=== PATIENT | female | born 1945 | race Caucasian/White ===

== ENCOUNTER 2021-01-24 11:31 | Emergency (ER) | payer MEDICARE, OTHER ==
--- NOTE | 2021-01-24 12:11 | EDM.PDOC ---
ED HPI GENERAL MEDICAL PROBLEM - General Chief Complaint: General Stated Complaint: LOTS OF HIP PAIN SHOULD PAIN BACK/ARTHRITIS Time Seen by Provider: 01/24/21 12:10 Source of Information: Reports: Patient, Old Records, RN, RN Notes Reviewed History Limitations: Reports: No Limitations - History of Present Illness INITIAL COMMENTS - FREE TEXT/NARRATIVE: Pt presents to ER by POV with c/o a flare up of arthritis causing severe pain in the hips, back, and sometimes in the shoulders. Pt states that in the past when this has happened Dr. Forrester has treated her with Hydrocodone and physical therapy. The pain began to flare up with the weather change 2 weeks ago. Last week she went to see Dr. Forrester and was prescribed pain medication, but it made her nauseated. She tried to go back to clinic today, but claims no appointments were available. Pt denies fall or injury. Denies radiating pain, loss of bowel or bladder function, numbness, tingling, or motor weakness. Duration: Constant Location: Reports: Back, Upper Extremity, Left, Upper Extremity, Right, Lower Extremity, Left, Lower Extremity, Right Quality: Reports: Ache, Same as Previous Episode Severity: Severe Improves with: Reports: Rest Worsens with: Reports: Movement Associated Symptoms: Reports: No Other Symptoms Treatments DIET AIDE: Reports: Other Medication(s) Bilateral Hip Pain Score (Numeric/FACES): 10 - Related Data Allergies Allergy/AdvReac Type Severity Reaction Status Date / Time No Known Allergies Allergy Verified 01/24/21 11:54 Home Meds: Home Meds Aspirin [Ecotrin] 81 mg PO DAILY 11/11/13 [History] Calcium Carb/Vit D3/Minerals [Calcium 1,200 mg Tablet Chew] 1 each PO DAILY 11/11/13 [History] Multivitamin with Minerals [Multiple Vitamin] 1 tab PO DAILY 11/11/13 [History] lisinopriL [Prinivil] 10 mg PO DAILY 11/11/13 [History] Hydrocodone/Acetaminophen [Hydrocodone-Acetamin 7.5-325] 1 tab PO Q6HR PRN 01/24/21 [History] Omeprazole 20 mg PO DAILY 01/24/21 [History] Past Medical History Cardiovascular History: Reports: Hypertension Gastrointestinal History: Reports: GERD Musculoskeletal History: Reports: Arthritis, Back Pain, Chronic, Fracture (multiple fractures from remote trauma) Social & Family History - Family History Family Medical History: No Pertinent Family History - Living Situation & Occupation Living situation: Reports: with Family Occupation: Retired ED ROS GENERAL - Review of Systems Review Of Systems: Comprehensive ROS is negative, except as noted in HPI. ED EXAM, GENERAL - Physical Exam Exam: See Below Exam Limited By: No Limitations General Appearance: Alert, No Apparent Distress, Thin, Cachetic Eye Exam: Bilateral Eye: Normal Inspection Throat/Mouth: Normal Voice, No Airway Compromise Head: Atraumatic, Normocephalic Neck: Normal Inspection, Non-Tender, Full Range of Motion Respiratory/Chest: No Respiratory Distress, Lungs Clear, No Accessory Muscle Use, Chest Non-Tender Cardiovascular: Normal Peripheral Pulses, Regular Rate, Rhythm, No Edema GI/Abdominal: Normal Bowel Sounds, Soft, Non-Tender Back Exam: Decreased Range of Motion, Paraspinal Tenderness (lumbar), Vertebral Tenderness (Generalized) Extremities: Non-Tender, Normal Capillary Refill, Other (Pain to B/L hips and low back with any ROM). No: Joint Swelling, Increased Warmth, Mottled, Pallor, Redness Neurological: Alert, Oriented, No Motor/Sensory Deficits Psychiatric: Normal Mood Skin Exam: Warm, Dry, Intact, Normal Color, No Rash Course - Vital Signs Last Recorded V/S: Last Vital Signs Temp 99.6 F 01/24/21 12:10 Pulse 95 01/24/21 12:10 Resp 18 01/24/21 12:10 BP 120/82 01/24/21 12:10 Pulse Ox 100 01/24/21 12:10 - Orders/Labs/Meds Meds: Medications Discontinued Medications Generic Name Dose Route Start Last Admin Trade Name Mraina PRN Reason Stop Dose Admin Hydromorphone HCl 0.5 mg 01/24/21 12:21 01/24/21 12:34 Hydromorphone 0.5 Mg/0.5 Ml Syringe IM 01/24/21 12:22 0.5 mg ONETIME ONE Administration Lidocaine HCl 30 gm 01/24/21 12:21 01/24/21 12:34 Lidocaine 5% Oint 35.44 Gm Tube TOP 01/24/21 12:22 1 applic ONETIME ONE Administration Ondansetron HCl 4 mg 01/24/21 12:21 01/24/21 12:34 Ondansetron 4 Mg Tab.Dis PO 01/24/21 12:22 4 mg ONETIME ONE Administration Departure - Departure Time of Disposition: 12:44 Disposition: Home, Self-Care 01 Condition: Fair Clinical Impression: Arthritis pain - Discharge Information *PRESCRIPTION DRUG MONITORING PROGRAM REVIEWED*: No *COPY OF PRESCRIPTION DRUG MONITORING REPORT IN PATIENT YISEL: No Instructions: Arthritis Forms: ED Department Discharge Additional Instructions: Rx: Zofran 4mg Rx: Lidocaine Ointment 5% Take Zofran (nausea mediation) 30 to 60 minutes prior to taking your pain medication. Call Dr. Forrester for a physical therapy referral. Sepsis Event Note (ED) - Focused Exam Vital Signs: Vital Signs Temp Pulse Resp BP Pulse Ox 01/24/21 12:10 99.6 F 95 18 120/82 100
[2021-01-24] MEDS ORDERED: Ondansetron 4 MG Tab.DIS PO ONE (12:21)
[2021-01-24] MEDS ORDERED: HYDROmorphone 0.5 MG/0.5 ML Syringe IM ONE (12:21)
[2021-01-24] MEDS ORDERED: Lidocaine 5% Oint 35.44 GM Tube TOP ONE (12:21)
== END 2021-01-24 13:05 | disposition home or self-care (01) ==
LOC: DL.ED 11:31
DX: M16.0 Bilateral primary osteoarthritis of hip (principal); M19.90 Unspecified osteoarthritis, unspecified site; K21.9 Gastro-esophageal reflux disease without esophagitis; I10 Essential (primary) hypertension; Z79.899 Other long term (current) drug therapy; Z79.82 Long term (current) use of aspirin
CPT/HCPCS: 96372; 99283; A9270-GY; J1170

== ENCOUNTER → 2022-10-04 | Day surgery (SDC) | payer MEDICARE, OTHER ==
[~2022-10-04] MED LIST: Acetaminophen 325 MG Tab PO PRN; Acetaminophen/Codeine 300-30 MG Tab PO PRN; Apraclonidine 0.5% Ophth Soln 5 ML Bot EYELF ONE; Balanced Salt Solution Ophth Irrig 500 ML Bottle IOCULAR ONE; Cataract Ophth Solution EYELF ONE; Chondroitin Sulfate/Hyaluronate Sodium Ophth Inj 0.75 ML Syringe EYELF ONE; Dexamethasone 4 MG/ML SDV IV ONE; Dexamethasone/Neomycin/Polymyxin B Ophth Oint 3.5 GM Tube EYELF ONE; Diclofenac Sodium 0.1% Ophth Soln 5 ML Bottle EYELF ONE; Lidocaine 1% 30 ML SDV ONE; Midazolam 1 MG/ML 2 ML SDV IV ONE; Moxifloxacin 0.5% Ophth Soln 3 ML Bottle EYELF ONE; Ondansetron 4 MG/2 ML SDV IVPUSH PRN; Phenylephrine 10% Ophth Soln 5 ML Bot EYELF PRN; Povidone-Iodine 5% Sterile Ophth Soln 30 ML Bottle EYELF ONE; Proparacaine 0.5% Ophth Soln 15 ML Bottle EYELF ONE; Sodium Chloride 0.9% 10 ML Syringe FLUSH PRN; Sodium Chloride 0.9% 10 ML Syringe IV ONE; Timolol Maleate 0.5% Ophth Soln 5 ML Bottle EYELF ONE; Tropicamide 1% Ophth Soln 15 ML Bottle EYELF ONE; Vancomycin 500 MG SDV EYELF ONE
== END | disposition home or self-care (01) ==
LOC: DL.SDS 07:27
PROVIDERS: ATTEND Ophthalmology
DX: H25.812 Combined forms of age-related cataract, left eye (principal); I10 Essential (primary) hypertension; M81.0 Age-related osteoporosis without current pathological fracture; I25.10 Atherosclerotic heart disease of native coronary artery without angina pectoris; M19.90 Unspecified osteoarthritis, unspecified site; F17.210 Nicotine dependence, cigarettes, uncomplicated; J44.9 Chronic obstructive pulmonary disease, unspecified; I65.23 Occlusion and stenosis of bilateral carotid arteries; Z98.890 Other specified postprocedural states; Z79.899 Other long term (current) drug therapy; Z79.82 Long term (current) use of aspirin; Z90.49 Acquired absence of other specified parts of digestive tract
CPT/HCPCS: 00142; A9270-GY; J1100; J2250; J3370; J3490

== ENCOUNTER → 2022-10-18 | Day surgery (SDC) | payer MEDICARE, OTHER ==
[~2022-10-18] MED LIST changes: -Apraclonidine 0.5% Ophth Soln 5 ML Bot EYELF ONE; +Apraclonidine 0.5% Ophth Soln 5 ML Bot EYERT ONE; -Cataract Ophth Solution EYELF ONE; +Cataract Ophth Solution EYERT ONE; -Chondroitin Sulfate/Hyaluronate Sodium Ophth Inj 0.75 ML Syringe EYELF ONE; +Chondroitin Sulfate/Hyaluronate Sodium Ophth Inj 0.75 ML Syringe EYERT ONE; -Dexamethasone 4 MG/ML SDV IV ONE; -Dexamethasone/Neomycin/Polymyxin B Ophth Oint 3.5 GM Tube EYELF ONE; +Dexamethasone/Neomycin/Polymyxin B Ophth Oint 3.5 GM Tube EYERT ONE; -Diclofenac Sodium 0.1% Ophth Soln 5 ML Bottle EYELF ONE; +Diclofenac Sodium 0.1% Ophth Soln 5 ML Bottle EYERT ONE; -Midazolam 1 MG/ML 2 ML SDV IV ONE; -Moxifloxacin 0.5% Ophth Soln 3 ML Bottle EYELF ONE; +Moxifloxacin 0.5% Ophth Soln 3 ML Bottle EYERT ONE; -Phenylephrine 10% Ophth Soln 5 ML Bot EYELF PRN; +Phenylephrine 10% Ophth Soln 5 ML Bot EYERT PRN; -Povidone-Iodine 5% Sterile Ophth Soln 30 ML Bottle EYELF ONE; +Povidone-Iodine 5% Sterile Ophth Soln 30 ML Bottle EYERT ONE; -Proparacaine 0.5% Ophth Soln 15 ML Bottle EYELF ONE; +Proparacaine 0.5% Ophth Soln 15 ML Bottle EYERT ONE; -Sodium Chloride 0.9% 10 ML Syringe IV ONE; -Timolol Maleate 0.5% Ophth Soln 5 ML Bottle EYELF ONE; +Timolol Maleate 0.5% Ophth Soln 5 ML Bottle EYERT ONE; -Tropicamide 1% Ophth Soln 15 ML Bottle EYELF ONE; +Tropicamide 1% Ophth Soln 15 ML Bottle EYERT ONE; -Vancomycin 500 MG SDV EYELF ONE; +Vancomycin 500 MG SDV EYERT ONE
== END ==
LOC: DL.SDS 06:57
PROVIDERS: ATTEND Ophthalmology
DX: H26.9 Unspecified cataract (principal); Z53.09 Procedure and treatment not carried out because of other contraindication
CPT/HCPCS: A9270; J3370; J3490

== ENCOUNTER → 2022-11-01 | Day surgery (SDC) | payer MEDICARE, OTHER ==
[~2022-11-01] MED LIST changes: +Dexamethasone 4 MG/ML SDV IV ONE; +Midazolam 1 MG/ML 2 ML SDV IV ONE; +Sodium Chloride 0.9% 10 ML Syringe IV ONE
== END | disposition home or self-care (01) ==
LOC: DL.SDS 06:56
PROVIDERS: ATTEND Ophthalmology
DX: H25.811 Combined forms of age-related cataract, right eye (principal); I10 Essential (primary) hypertension; M81.0 Age-related osteoporosis without current pathological fracture; I65.23 Occlusion and stenosis of bilateral carotid arteries; Z98.890 Other specified postprocedural states; Z79.899 Other long term (current) drug therapy; Z79.82 Long term (current) use of aspirin; I25.10 Atherosclerotic heart disease of native coronary artery without angina pectoris; F17.210 Nicotine dependence, cigarettes, uncomplicated
CPT/HCPCS: 00142; A9270-GY; J1100; J2250; J3370; J3490

== ENCOUNTER 2023-09-09 14:34 | Emergency (ER) | payer MEDICARE, OTHER ==
[2023-09-09 15:25] LABS: APPEARANCE,URINE CLEAR (CLEAR); BILIRUBIN,URINE SMALL (NEGATIVE); COLOR,URINE DARK YELLOW (YELLOW); GLUCOSE,URINE NEGATIVE (NEGATIVE); KETONES,URINE 15 (NEGATIVE); LEUKOCYTE ESTERASE,URINE NEGATIVE (NEGATIVE); NITRITE,URINE NEGATIVE (NEGATIVE); OCCULT BLOOD,URINE MODERATE (NEGATIVE); PROTEIN,URINE 100 (NEGATIVE); UROBILINOGEN,URINE 0.2 mg/dL (0.2-1.0)
[2023-09-09 15:41] LABS: BASOPHILS PERCENT AUTO 0.9 % (0.0-1.0); EOSINOPHILS PERCENT AUTO 1.4 % (1.0-3.0); HEMATOCRIT 40.2 % (37.0-47.0); HEMOGLOBIN 12.6 g/dL (12.0-16.0); LYMPHOCYTES PERCENT AUTO 26.8 % (20.5-50.1); MEAN CORPUSCULAR HEMOGLOBIN 30.5 pg (27.0-34.0); MEAN CORPUSCULAR HGB CONC 31.3 g/dL (33.0-35.0); MEAN CORPUSCULAR VOLUME 97.3 fL (80-100); MONOCYTES PERCENT AUTO 12.3 % (2-8); NEUTROPHILS PERCENT AUTO 58.6 % (42.2-75.2); PLATELET COUNT,PLT 314 10^3/uL (150-450); RED BLOOD CELL COUNT 4.13 10^6/uL (4.2-5.4); WHITE BLOOD CELL COUNT,WBC 6.5 10^3/uL (5.0-10.0)
[2023-09-09] MEDS ORDERED: Sodium Chloride 0.9% 10 ML Syringe FLUSH PRN (15:44)
[2023-09-09 15:58] LABS: A/G RATIO 1.2; ALBUMIN 3.6 g/dL (3.4-5.0); ANION GAP 4.1 mEq/L (7-13); BILIRUBIN TOTAL 0.4 mg/dL (0.2-1.0); BUN/CREATININE RATIO 13.7 (No establ ref range); CALCIUM 9.1 mg/dL (8.5-10.1); CREATININE 1.17 mg/dL (0.55-1.02); EST CRCL DRUG DOSING (CG) 18.09 mL/min; POTASSIUM,K 5.1 mmol/L (3.5-5.1); PROTEIN TOTAL,TP 6.5 g/dL (6.4-8.2)
[2023-09-09 16:00] LABS: PROTHROMBIN TIME 10.2 SEC (9.0-12.0)
[2023-09-09 16:06] LABS: AMORPHOUS SEDIMENT,URINE FEW /HPF (NOT SEEN); BACTERIA,URINE FEW /HPF (0-FEW/HPF); EPITHELIAL CELLS,URINE MODERATE /HPF (NOT SEEN); HYALINE CASTS,URINE MODERATE; MUCUS,URINE MANY /LPF (NOT SEEN); RBC,URINE 0-5 /HPF (0-5); WBC,URINE 0-5 /HPF (0-5/HPF)
[2023-09-09] MEDS ORDERED: Iopamidol 612 MG/ML 100 ML Bottle IVPUSH ONE (16:11)
[2023-09-09] MEDS ORDERED: Sodium Chloride 0.9% 1,000 ML IV ONE (17:33)
[2023-09-09] MEDS ORDERED: Pantoprazole 40 MG Vial IVPUSH ONE (18:26)
== END 2023-09-10 07:17 ==
LOC: DL.ED 14:34
DX: K92.2 Gastrointestinal hemorrhage, unspecified (principal); I10 Essential (primary) hypertension; K21.9 Gastro-esophageal reflux disease without esophagitis; M19.90 Unspecified osteoarthritis, unspecified site; F17.210 Nicotine dependence, cigarettes, uncomplicated; Z79.82 Long term (current) use of aspirin; Z79.899 Other long term (current) drug therapy; Z86.16 Personal history of COVID-19; Z90.49 Acquired absence of other specified parts of digestive tract
CPT/HCPCS: 36415; 74177; 80053; 81001; 82272; 83605; 85018; 85025; 85610; 85730; 86850; 86900; 86901; 96361; 96374; 99284; C9113; J7030; Q9967; J3490

== ENCOUNTER 2024-02-06 10:57 | Inpatient (IN) | payer MEDICARE, OTHER ==
[2024-02-06] MEDS: Sodium Chloride 0.9% 1,000 ML IV ONE (11:10)
[2024-02-06 11:14] LABS: BASOPHILS PERCENT AUTO 0.1 % (0.0-1.0); HEMATOCRIT 46.9 % (37.0-47.0); HEMOGLOBIN 14.4 g/dL (12.0-16.0); LYMPHOCYTES PERCENT AUTO 2.3 % (20.5-50.1); MEAN CORPUSCULAR HEMOGLOBIN 29.9 pg (27.0-34.0); MEAN CORPUSCULAR HGB CONC 30.7 g/dL (33.0-35.0); MEAN CORPUSCULAR VOLUME 97.5 fL (80-100); MONOCYTES PERCENT AUTO 7.4 % (2-8); NEUTROPHILS PERCENT AUTO 90.2 % (42.2-75.2); PLATELET COUNT,PLT 260 10^3/uL (150-450); RED BLOOD CELL COUNT 4.81 10^6/uL (4.2-5.4); WHITE BLOOD CELL COUNT,WBC 16.6 10^3/uL (5.0-10.0)
[2024-02-06 11:16] LABS: BASE EXCESS ARTERIAL 2 mmol/L ((-2)-(+3)); BICARBONATE,ARTERIAL 32.6 mmol/L (22-26); O2 DELIVERY DEVICE NASAL CANNULA; O2 SATURATION ARTERIAL 98 % (95-100); PH,ARTERIAL 7.22 (7.35-7.45); PO2 ARTERIAL 121 mmHg (70-100)
[2024-02-06 11:23] LABS: ALLEN TEST PERFORMED; PCO2 ARTERIAL 83 mmHg (35-45)
[2024-02-06 11:30] LABS: APPEARANCE,URINE CLEAR (CLEAR); BILIRUBIN,URINE NEGATIVE (NEGATIVE); COLOR,URINE YELLOW (YELLOW); GLUCOSE,URINE NEGATIVE (NEGATIVE); KETONES,URINE NEGATIVE (NEGATIVE); LEUKOCYTE ESTERASE,URINE NEGATIVE (NEGATIVE); NITRITE,URINE NEGATIVE (NEGATIVE); OCCULT BLOOD,URINE TRACE-INTACT (NEGATIVE); PH,URINE 5.5 (5.0-9.0); PROTEIN,URINE 100 (NEGATIVE)
[2024-02-06] MEDS: Sodium Chloride 0.9% 10 ML Syringe FLUSH PRN (11:31)
[2024-02-06] MEDS: Hydrocortisone Sodium Succinate 100 MG/2 ML SDV IVPUSH ONE (11:32)
[2024-02-06 11:40] LABS: LACTIC ACID 1.9 mmol/L (0.4-2.0)
[2024-02-06 11:47] LABS: ALBUMIN 3.2 g/dL (3.4-5.0); ALKALINE PHOSPHATASE 77 U/L (46-116); ANION GAP 11.1 mEq/L (7-13); BILIRUBIN TOTAL 0.9 mg/dL (0.2-1.0); BLOOD UREA NITROGEN,BUN 58 mg/dL (7-18); BUN/CREATININE RATIO 35.2 (No establ ref range); C-REACTIVE PROTEIN 8.97 ng/dL (<=0.50); CALCIUM 8.5 mg/dL (8.5-10.1); CARBON DIOXIDE,CO2 34 mmol/L (21-32); CHLORIDE,CL 99 mmol/L (98-107); CREATININE 1.65 mg/dL (0.55-1.02); GLUCOSE RANDOM 137 mg/dL (70-99); MAGNESIUM 2.4 mg/dL (1.8-2.4); POTASSIUM,K 5.1 mmol/L (3.5-5.1); PROTEIN TOTAL,TP 6.4 g/dL (6.4-8.2); TSH ULTRASENSITIVE 0.68 uIU/mL (0.36-3.74)
[2024-02-06 11:51] LABS: ESTIMATED GFR 32 mL/min (>=60)
[2024-02-06 11:52] LABS: SODIUM,NA 139 mmol/L (136-145)
[2024-02-06 11:54] LABS: BACTERIA,URINE FEW /HPF (0-FEW/HPF); EPITHELIAL CELLS,URINE FEW /HPF (NOT SEEN); RBC,URINE 0-5 /HPF (0-5)
[2024-02-06 11:55] LABS: HYALINE CASTS,URINE RARE; MUCUS,URINE FEW /LPF (NOT SEEN)
[2024-02-06] MEDS: Piperacillin/Tazobactam 3.375 GM in Sodium Chloride 0.9% 100 ML IV ONE (12:09)
[2024-02-06 12:41] LABS: ALANINE AMINOTRANSFERASE,ALT > 1000 U/L (14-59); ASPARTATE AMNIOTRANSFERASE,AST > 1000 U/L (15-37)
[2024-02-06] MEDS ORDERED: Acetaminophen/HYDROcodone 325-5 MG Tab PO PRN (13:12)
[2024-02-06] MEDS ORDERED: Ondansetron 4 MG Tab.DIS PO PRN (13:12)
[2024-02-06] MEDS ORDERED: Docusate Sodium 100 MG Cap PO PRN (13:12)
[2024-02-06] MEDS ORDERED: Acetaminophen 325 MG Tab PO PRN (13:12)
[2024-02-06 13:14] LABS: AMYLASE 148 U/L (25-115); LIPASE 122 U/L (16-77)
[2024-02-06 13:19] LABS: ACETAMINOPHEN 0 ug/mL (10-30 (Therapeutic))
[2024-02-06] MEDS: Pantoprazole 40 MG Vial IVPUSH SCH (15:03)
[2024-02-06] MEDS: methylPREDNISolone Sodium Succinate 40 MG/1 ML SDV IVPUSH SCH (15:03)
[2024-02-06] MEDS: Sodium Chloride 0.9% 1,000 ML IV SCH (15:05)
[2024-02-06] MEDS: Piperacillin/Tazobactam 2.25 GM in Sodium Chloride 0.9% 100 ML IV SCH (15:08)
[2024-02-06] MEDS ORDERED: Temazepam 15 MG Cap PO PRN (22:25)
[2024-02-07] MEDS: Piperacillin/Tazobactam 4.5 GM in Sodium Chloride 0.9% 100 ML IV SCH (03:41)
[2024-02-07 06:37] LABS: BASOPHILS PERCENT AUTO 0.1 % (0.0-1.0); EOSINOPHILS PERCENT AUTO 0.1 % (1.0-3.0); HEMATOCRIT 45.1 % (37.0-47.0); HEMOGLOBIN 13.6 g/dL (12.0-16.0); LYMPHOCYTES PERCENT AUTO 3.1 % (20.5-50.1); MEAN CORPUSCULAR HEMOGLOBIN 30.2 pg (27.0-34.0); MEAN CORPUSCULAR HGB CONC 30.2 g/dL (33.0-35.0); MONOCYTES PERCENT AUTO 3.9 % (2-8); NEUTROPHILS PERCENT AUTO 92.8 % (42.2-75.2); PLATELET COUNT,PLT 251 10^3/uL (150-450); RED BLOOD CELL COUNT 4.51 10^6/uL (4.2-5.4); WHITE BLOOD CELL COUNT,WBC 13.8 10^3/uL (5.0-10.0)
[2024-02-07 06:45] LABS: ANION GAP 12.9 mEq/L (7-13); CALCIUM 7.3 mg/dL (8.5-10.1); CREATININE 1.87 mg/dL (0.55-1.02); EST CRCL DRUG DOSING (CG) 11.11 mL/min; POTASSIUM,K 4.9 mmol/L (3.5-5.1)
[2024-02-07 06:58] LABS: ALBUMIN 2.9 g/dL (3.4-5.0); ALKALINE PHOSPHATASE 64 U/L (46-116); AMYLASE 146 U/L (25-115); BILIRUBIN DIRECT 0.4 mg/dL (0.0-0.2); BILIRUBIN INDIRECT 0.2; BILIRUBIN TOTAL 0.6 mg/dL (0.2-1.0); LIPASE 69 U/L (16-77); PROTEIN TOTAL,TP 6.2 g/dL (6.4-8.2)
[2024-02-07 07:03] LABS: A/G RATIO 0.88; ALANINE AMINOTRANSFERASE,ALT > 1000 U/L (14-59); ASPARTATE AMNIOTRANSFERASE,AST > 1000 U/L (15-37)
[2024-02-07] MEDS: Nicotine 21 MG/24 Hr Patch TRDERM SCH (09:28)
[2024-02-07] MEDS: Furosemide 40 MG/4 ML VIAL IVPUSH ONE (12:55)
[2024-02-07] MEDS: Enoxaparin 30 MG/0.3 ML Syringe SUBCUT SCH (12:55)
[2024-02-07] MEDS: Clopidogrel 75 MG Tab PO SCH (12:56)
[2024-02-08] MEDS ORDERED: Rosuvastatin 10 MG Tab PO SCH (09:00)
== END 2024-02-07 16:00 | disposition still patient (30) | DRG 193 ==
LOC: DL.ED 10:57 → DL.MS 12:36
PROVIDERS: ADMIT Internal Medicine; ATTEND Internal Medicine
DX: A41.9 Sepsis, unspecified organism (principal); J18.9 Pneumonia, unspecified organism; I21.9 Acute myocardial infarction, unspecified; E87.29 Other acidosis; I50.9 Heart failure, unspecified; Z79.82 Long term (current) use of aspirin; Z79.899 Other long term (current) drug therapy; Z66 Do not resuscitate; I11.0 Hypertensive heart disease with heart failure; K21.9 Gastro-esophageal reflux disease without esophagitis; G89.29 Other chronic pain; M54.9 Dorsalgia, unspecified; M19.90 Unspecified osteoarthritis, unspecified site; D86.0 Sarcoidosis of lung; R06.89 Other abnormalities of breathing; R79.89 Other specified abnormal findings of blood chemistry; R62.7 Adult failure to thrive; Z87.11 Personal history of peptic ulcer disease; Z90.49 Acquired absence of other specified parts of digestive tract; Z86.16 Personal history of COVID-19
CPT/HCPCS: 36415; 36600; 71045; 74176; 80048; 80053; 80076; 80143; 81001; 82150; 82803; 82947; 83605; 83690; 83735; 83880; 84443; 84484; 85025; 86140; 87040; 93005; 93010; 94660; 96361; 96365; 96368; 96375; 99285; 99285-25; A9270-GY; C9113; J1650; J1720; J1940; J2543; J2920; J3370; J3490; J7030